=== PATIENT | female | born 1985 | race Caucasian/White ===

== ENCOUNTER 2017-08-28 22:46 | Emergency (ER) | payer SELFPAY ==
[~2017-08-28] VITALS: Ht 160 cm; Wt 57.6 kg
[2017-08-28 22:52] VITALS: BP 124/78; PULSE 98; RESP 18; TEMP 98; O2SAT 98
--- NOTE | 2017-08-28 23:26 | PD ---
HPI Chief Complaint: Injury Time Seen by Provider: 23:24 Travel History International Travel<30 days: No Contact w/Intl Traveler<30days: No Traveled to known affect area: No History of Present Illness HPI 32-year-old female patient presents to the ER today, had stepped on a nail last night and it went through her boot into her right foot. She complains of pain but denies any other issues or injuries. Modifying Factors: None Associated Signs & Symptoms: Stepped on a nail with the right foot Risk Factors: None PFSH Past Medical History Tetanus Vaccination: Unknown Influenza Vaccination: No ?: Unknown LMP: 08/01/17 Social History Alcohol Use: Yes (4 Beers Daily ) Tobacco Use: Yes (2 Cig/day) Substance Use: Yes (Marijuana,1 blunt/daily ) Allergies-Medications (Allergen,Severity, Reaction): Coded Allergies: No Known Allergies (Verified Allergy, Unknown, 08/28/17) Reported Meds & Prescriptions Reported Meds & Active Scripts Active No Active Prescriptions or Reported Medications Review of Systems Except as stated in HPI: all other systems reviewed are Neg Physical Exam Narrative GENERAL: Well-nourished, well-developed young white female patient in mild distress. Awake and oriented 3. SKIN: Focused skin assessment warm/dry. There is a notable puncture wound at the right first and second metatarsal area. Tender to palpation. HEAD: Normocephalic. EYES: No scleral icterus. No injection or drainage. NECK: Supple, trachea midline. No JVD or lymphadenopathy. EXTREMITIES: No clubbing, cyanosis, or edema. No joint tenderness, effusion, or edema noted. Data Data Last Documented VS Vital Signs Date Time Temp Pulse Resp B/P (MAP) Pulse Ox O2 Delivery O2 Flow Rate FiO2 08/28/17 22:52 98.0 98 18 124/78 (93) 98 Orders Orders Foot, Limited (2vws) (08/28/17 23:24) Tetanus/Diphtheria Tox Adult (Tetanus/Di (08/28/17 23:30) Ibuprofen (Motrin) (08/28/17 23:30) MDM Medical Decision Making Medical Screen Exam Complete: Yes Emergency Medical Condition: Yes Medical Record Reviewed: Yes Differential Diagnosis Stepped on a nail, puncture wound to the right foot Narrative Course X-ray did not show any signs of foreign bodies. Considering that the nail had gone through her shoe as well, plan would be to treat with with Cipro to avoid any underlying infections. Plan would be to release her at this point with follow-up to primary care doctor as needed. Return for any worsening in pain or new symptoms. The plan has been discussed with her and she states understanding. Diagnosis Primary Impression: Puncture wound of foot Med/Other Pt SpecificInfo: Prescription(s) given Scripts Ibuprofen (Ibuprofen) 600 Mg Tab 600 MG PO Q6H Y for Pain/Inflammation, #20 TAB 0 Refills Prov: Flaca Donnelly MD 08/29/17 Ciprofloxacin (Cipro) 500 Mg Tab 500 MG PO BID for Infection for 7 Days, #14 TAB 0 Refills Prov: Flaca Donnelly MD 08/29/17 Disposition: 01 DISCHARGE HOME Condition: Stable Flaca Donnelly MD August 28, 2017 23:26
[2017-08-28] MEDS ORDERED: IBUPROFEN 600 MG TAB PO ONE (23:30)
[2017-08-28] MEDS ORDERED: TETANUS/DIPHTHERIA TOXOID ADULT 0.5 ML VIAL IM ONE (23:30)
--- NOTE | 2017-08-29 | RADRPT ---
EXAM DATE/TIME: 08/28/2017 23:32 [facility] COMPARISON: No previous studies available for comparison. INDICATIONS : Right great toe pain after stepping on a nail. Puncture wound at 1st metatarsal. MEDICAL HISTORY : None. SURGICAL HISTORY : None. ENCOUNTER: Initial ACUITY: 1 day PAIN SCORE: 6/10 LOCATION: Right great toe. FINDINGS: Two view examination of the right foot demonstrates no soft tissue swelling, dislocation, or fracture . The calcaneus is intact. Bony mineralization is normal. CONCLUSION: 1. No acute findings. Benjamin Bose MD on August 28, 2017 at 23:57 Board Certified Radiologist. This report was verified electronically.
[2017-08-29] MEDS ORDERED: IBUP-232 PO (00:06)
[2017-08-29] MEDS ORDERED: CIPR-9 PO (00:06)
== END 2017-08-29 00:14 | disposition home or self-care (01) ==
LOC: PHEFT 22:46
DX: S91.331A Puncture wound without foreign body, right foot, initial encounter (principal); W45.0XXA Nail entering through skin, initial encounter; W22.8XXA Striking against or struck by other objects, initial encounter; F17.210 Nicotine dependence, cigarettes, uncomplicated; F12.90 Cannabis use, unspecified, uncomplicated; Z23 Encounter for immunization
CPT/HCPCS: 73620; 90471; 90714

== ENCOUNTER 2017-10-03 12:23 | Emergency (ER) | payer SELFPAY ==
[~2017-10-03] VITALS: Ht 160 cm; Wt 54.6 kg
[~2017-10-03 12:23] MED LIST: CIPR-9 PO; IBUP-232 PO
[2017-10-03 12:29] VITALS: BP 130/73; PULSE 98; RESP 16; RESP 18; TEMP 98.4; O2SAT 97
[2017-10-03] MEDS ORDERED: DEXAMETHASONE SOD PHOS 20 MG/5 ML VIAL IM ONE (13:00)
[2017-10-03] MEDS ORDERED: oxyCODONE/ACETAMINOPHEN 5 MG/325 MG TAB PO ONE (13:00)
[2017-10-03] MEDS ORDERED: PERC5TAB12 PO (13:12)
[2017-10-03] MEDS ORDERED: IBUP-232 PO (13:12)
[2017-10-03] MEDS ORDERED: PRED20 PO (13:12)
--- NOTE | 2017-10-03 13:13 | PD ---
HPI Chief Complaint: Skin Problem Time Seen by Provider: 12:43 Travel History International Travel<30 days: No Contact w/Intl Traveler<30days: No Traveled to known affect area: No History of Present Illness HPI Patient is a 32-year-old female presents the emergency room for evaluation of skin poisoning. Patient reports that she was out in the sun all day yesterday and fell asleep face down. Reports that she woke up sunburned. She did not place sun block on yesterday. Reports that she woke up today with blisters to her back as well as severe pain. Patient with no other complaints, denies any fevers or chills. PFSH Past Medical History Hx Anticoagulant Therapy: No Anemia: Yes Cardiovascular Problems: No Chemotherapy: No Cerebrovascular Accident: No Diabetes: No Diminished Hearing: No Respiratory: No Influenza Vaccination: No ?: Not LMP: 09/02/17 Past Surgical History Abdominal Surgery: Yes (stomach surgery as a child) Hysterectomy: No Social History Alcohol Use: Yes (4 Beers Daily ) Tobacco Use: Yes (2 Cig/day) Substance Use: Yes (Marijuana,1 blunt/daily ) Allergies-Medications (Allergen,Severity, Reaction): Coded Allergies: No Known Allergies (Verified Allergy, Unknown, 10/03/17) Reported Meds & Prescriptions Reported Meds & Active Scripts Active No Active Prescriptions or Reported Medications Review of Systems General / Constitutional: No: Fever, Chills Eyes: No: Visual changes HENT: No: Headaches Cardiovascular: No: Chest Pain or Discomfort Respiratory: No: Shortness of Breath Gastrointestinal: No: Abdominal Pain Genitourinary: No: Dysuria Musculoskeletal: No: Pain Skin: Positive Other (Blisters as well as sunburn to back), No Rash Neurologic: No: Weakness Psychiatric: No: Depression Endocrine: No: Polydipsia Hematologic/Lymphatic: No: Easy Bruising Physical Exam Narrative GENERAL: Mild distress SKIN: Focused skin assessment warm/dry. Patient with sunburn to her back, patient with multiple small blisters as well as 2 large bullae to her back, no drainage or purulence HEAD: Atraumatic. Normocephalic. EYES: Pupils equal and round. No scleral icterus. No injection or drainage. ENT: No nasal bleeding or discharge. Mucous membranes pink and moist. NECK: Trachea midline. No JVD. CARDIOVASCULAR: Regular rate and rhythm. No murmur appreciated. RESPIRATORY: No accessory muscle use. Clear to auscultation. Breath sounds equal bilaterally. GASTROINTESTINAL: Abdomen soft, non-tender, nondistended. Hepatic and splenic margins not palpable. MUSCULOSKELETAL: No obvious deformities. No clubbing. No cyanosis. No edema. NEUROLOGICAL: Awake and alert. Normal speech. PSYCHIATRIC: Appropriate mood and affect; insight and judgment normal. Data Data Last Documented VS Vital Signs Date Time Temp Pulse Resp B/P (MAP) Pulse Ox O2 Delivery O2 Flow Rate FiO2 10/03/17 12:43 18 10/03/17 12:29 98.4 98 130/73 (92) 97 Orders Orders Ed Urine Pregnancytest Poc (10/03/17 12:52) Dexamethasone Inj (Decadron Inj) (10/03/17 13:00) Oxycodone-Acetamin 5-325 Mg (Percocet (10/03/17 13:00) MDM Medical Decision Making Medical Screen Exam Complete: Yes Emergency Medical Condition: Yes Medical Record Reviewed: Yes Interpretation(s) Vital Signs Date Time Temp Pulse Resp B/P (MAP) Pulse Ox O2 Delivery O2 Flow Rate FiO2 10/03/17 12:43 18 10/03/17 12:29 98.4 98 18 130/73 (92) 97 Differential Diagnosis sun burn, sun poisoning, blisters from sun burn Narrative Course During the course of the patients emergency department visit, the patients history, examination, and differential diagnosis were reviewed with the patient. The patient was placed on a surveillance system monitor with oximetry and frequent blood pressure monitoring. The patient was initially provided with symptomatic relief with a dose of Percocet as well as steroids and Toradol Signs and symptoms of infection reviewed with patient, she will return to emergency room as needed. Diagnosis Primary Impression: Burn from the sun Additional Impression: Sunburn, blistering Patient Instructions: General Instructions, Narcotic given in the ED Departure Forms: Tests/Procedures, Work Release Enter return to work date: Oct 06, 2017 Additional Instructions: Return to the emergency room as needed Please place aloe vera to area of sunburn Do not pop the bullae Do not drive or operate heavy machinery while taking narcotic pain medications Return to the emergency room immediately if you develop any signs of infection Med/Other Pt SpecificInfo: Prescription(s) given Scripts Prednisone (Prednisone) 20 Mg Tab 20 MG PO BID for 5 Days, #10 TAB 0 Refills Prov: Bonnie Hahn DO 10/03/17 Oxycodone-Acetaminophen (Percocet) 5-325 mg Tab 1 TAB PO Q6H Y for PAIN, #12 TAB 0 Refills Prov: Bonnie Hahn DO 10/03/17 Ibuprofen (Ibuprofen) 600 Mg Tab 600 MG PO Q6H Y for Pain/Inflammation, #40 TAB 0 Refills Prov: Bonnie Hahn DO 10/03/17 Disposition: 01 DISCHARGE HOME Condition: Stable Bonnie Hahn DO Oct 03, 2017 13:12
[2017-10-03] MEDS ORDERED: KETOROLAC TROMETHAMINE 60 MG/2 ML (IM) VIAL IM ONE (13:15)
[2017-10-03 14:11] VITALS: BP 125/85
== END 2017-10-03 14:14 | disposition home or self-care (01) ==
LOC: PHED 12:23
DX: L55.9 Sunburn, unspecified (principal); S20.422A Blister (nonthermal) of left back wall of thorax, initial encounter; S20.421A Blister (nonthermal) of right back wall of thorax, initial encounter; X19.XXXA Contact with other heat and hot substances, initial encounter; Y93.84 Activity, sleeping; Y92.832 Beach as the place of occurrence of the external cause; F12.90 Cannabis use, unspecified, uncomplicated; Z72.0 Tobacco use
CPT/HCPCS: 84703; 96372; 99283; J1100; J1885